=== PATIENT | female | born 1995 | race Two or more races ===

== ENCOUNTER 2020-04-12 09:36 | Outpatient (CLI) | payer OTHER | END 2020-04-12 23:59 | disposition home or self-care (01) | LOC: LAB 09:36 | PROVIDERS: ATTEND Specialist | DX: Z01.812 Encounter for preprocedural laboratory examination (principal); Z20.828 Contact with and (suspected) exposure to other viral communicable diseases | CPT/HCPCS: 87426; C9803 ==

== ENCOUNTER 2020-04-18 08:20 | Day surgery (SDC) | payer OTHER ==
[~2020-04-18] VITALS: Ht 165.1 cm; Wt 72.6 kg
--- NOTE | 2020-04-18 08:00 | NUR ---
Received patient awake , alert and oriented x4 . Ambulatory, gait is steady. Admitted for day surgery . Patient came in with right upper chest westley cath with assess. No s/s infection around aria noted. Patient sighed a consent for the surgery. No allergy to med was reported. Skin is intact.
[2020-04-18] MEDS ORDERED: SCOPOLAMINE HBR 1 EA PATCH.TD72 TD ONE ×2 (09:24)
[2020-04-18] MEDS ORDERED: MIDAZOLAM HCL 2 MG/2ML VIAL ONE (09:37)
[2020-04-18] MEDS ORDERED: FENTANYL PF 100MCG/2ML AMPUL ONE (11:03)
--- NOTE | 2020-04-18 12:05 | NUR ---
Patient is back from surgery , VS are stable , A/O x4 . Denies pain at this time . Denies nausea. Per dr. Silvestre patient can be d/c to home. Patient will f/u with dr. Silvestre on 04/23/20 .
--- NOTE | 2020-04-18 13:10 | NUR ---
Patient cleared for d/c to home by dr. Silvestre. VS are stable , no complains of pain or other discomfort. Sling on right arm present. Patient instructed to f/u with in one week. Other d/c instructions are given and pt verbalized understanding. All needs attended prior d/c . Patient safely transferred to [facility] via wheelchair accompanied bu STAFF MIDWIFE and picked up by father.
== END 2020-04-18 19:00 | disposition home or self-care (01) ==
LOC: DS 08:20 → MED 08:22 → UNDOADMIN 08:22 → UNDODISIN 13:30 → DS 19:00
PROVIDERS: ATTEND Specialist
DX: G56.01 Carpal tunnel syndrome, right upper limb (principal); Z79.899 Other long term (current) drug therapy
CPT/HCPCS: 64721; 84703; A6402; J0690; J1100; J1885; J2250; J2405; J2704; J3010; J3490; G0378